=== PATIENT | female | born 1975 | race Caucasian/White ===

== ENCOUNTER 2021-01-25 03:52 | Emergency (ER) | payer OTHER ==
[~2021-01-25] VITALS: Ht 162.6 cm; Wt 90.7 kg
[2021-01-25 04:03] VITALS: BP_SYST 131
[2021-01-25] MEDS ORDERED: GABAPENTIN 300 MG CAPSULE PO ONE (04:30)
[2021-01-25] MEDS ORDERED: predniSONE 20 MG TABLET PO ONE (04:30)
[2021-01-25] MEDS ORDERED: MORPHINE 4 MG INJ. 4 MG/ML VIAL IM ONE (04:30)
[2021-01-25] MEDS ORDERED: PRED20TA PO (05:01)
[2021-01-25] MEDS ORDERED: NEU300 PO (05:01)
[2021-01-25 05:24] VITALS: BP_SYST 131
[2021-01-25] MEDS ORDERED: MORPHINE 4 MG INJ. 4 MG/ML VIAL ONE (05:40)
[2021-01-25 05:48] LABS: BILIRUBIN,URINE NEGATIVE (NEGATIVE); CLARITY/URINE CLEAR (CLEAR); COLOR,URINE YELLOW (YELLOW); GLUCOSE,URINE NEGATIVE (NEGATIVE); KETONES,URINE NEGATIVE (NEGATIVE); LEUKOCYTE ESTERASE ,URINE 1+ (NEGATIVE); NITRITE, URINE NEGATIVE (NEGATIVE); PROTEIN URINE NEGATIVE (NEGATIVE); UROBILINOGEN,URINE 0.2 (0.2-1.0)
[2021-01-25 05:49] LABS: BLOOD, URINE TRACE (NEGATIVE)
[2021-01-25 06:10] LABS: BACTERIA,URINE FEW /HPF (None Seen)
== END 2021-01-25 05:24 | disposition home or self-care (01) ==
LOC: MERGE 03:52 → SED 03:52
DX: R10.9 Unspecified abdominal pain (principal); M79.7 Fibromyalgia; M51.34 Other intervertebral disc degeneration, thoracic region; Z79.899 Other long term (current) drug therapy
CPT/HCPCS: 81000; 81025; 87086; 96372; 99284; J2270; J7512

== ENCOUNTER 2021-01-28 15:11 | Emergency (ER) | payer OTHER ==
[~2021-01-28] VITALS: Ht 162.6 cm; Wt 99.8 kg
[2021-01-28 15:11] VITALS: BP_SYST 124
[~2021-01-28 15:11] MED LIST: NEU300 PO; PRED20TA PO
--- NOTE | 2021-01-28 15:15 | NUR ---
BROUGHT BACK TO BED #7 AND TRIAGED. REPORT GIVEN TO RADHA
--- NOTE | 2021-01-28 15:30 | NUR ---
PT CAME IN FROM HOME C/O ABD PAIN TO LEFT SIDE, GAS, CRAMPING, NAUSEA, DIARRHEA FOR THE LAST WEEK. PT ALSO C.O LEFT SIDED BACK PAIN, HAS BEEN TAKING IBUPROFEN AT HOME WITHOUT RELIEF. PT ALSO STATES SHE HAS BEEN HAVING HOT FLASHES AND SWEATING AND COUGHING. PT IS AMBULATORY, AAOX4, V/S STABLE
--- NOTE | 2021-01-28 15:46 | NUR ---
ER DR. PEREZ AT THE BEDSIDE EXAMINING PT
--- NOTE | 2021-01-28 15:55 | NUR ---
PT ABLE TO AMBULATE TO BATHROOM TO PROVIDE URINE SAMPLE
[2021-01-28] MEDS ORDERED: MORPHINE 4 MG INJ. 4 MG/ML VIAL IVP ONE (16:00)
[2021-01-28] MEDS ORDERED: ONDANSETRON HCL 4 MG/2 ML VIAL IVP ONE (16:00)
--- NOTE | 2021-01-28 16:00 | NUR ---
# 20 gauge angiocath placed to LAC. Use of asceptic technique. Opsite placed over site. Blood return noted. Blood for lab drawn from site. Flushed with 10 cc of normal saline. No evidence of infiltration noted. Patient tolerated well.
[2021-01-28 16:11] LABS: BASOPHILS # (AUTO) 0.1 K/uL (0.0-0.2); BASOPHILS % (AUTO) 0.7 % (0.0-2.0); EOSINOPHILS % (AUTO) 0.3 % (0.0-4.0); HEMATOCRIT 41.6 % (36-48); HEMOGLOBIN 14.2 g/dL (12.0-16.0); LYMPHOCYTES # (AUTO) 3.2 K/uL (1.0-5.5); LYMPHOCYTES % (AUTO) 23.1 % (20.5-51.5); MEAN CORPUSCULAR HEMOGLOBIN 30 pg (27-31); MEAN CORPUSCULAR HGB CONC 34 % (32-36); MEAN CORPUSCULAR VOLUME 89 fL (79.0-98.0); MONOCYTES # (AUTO) 0.9 K/uL (0.0-1.0); MONOCYTES % (AUTO) 6.7 % (1.7-9.3); NEUTROPHILS # (AUTO) 9.7 K/uL (1.8-7.7); NEUTROPHILS % (AUTO) 69.2 % (40.0-70.0); PLATELET COUNT (AUTO) 368 K/uL (130-430); RED BLOOD CELL COUNT(AUTO) 4.71 MIL/uL (4.2-6.2)
[2021-01-28 16:42] LABS: INR 0.9 (0.8-1.2); PROTHROMBIN TIME 9.6 SECS (9.5-12.5)
--- NOTE | 2021-01-28 16:53 | NUR ---
Patient transported to radiology via WC, accompanied by STAFF.
--- NOTE | 2021-01-28 17:00 | NUR ---
PT RESTING IN GURNEY, AWAKE, ALERT, RESPIRATIONS EVEN AND UNLABORED, NO DISTRESS NOTED
[2021-01-28 17:01] LABS: CREATININE 0.86 mg/dL (0.55-1.30); POTASSIUM 3.1 mmol/L (3.5-5.1)
[2021-01-28 17:07] LABS: ALBUMIN 4.2 g/dL (3.4-4.8); TOTAL BILIRUBIN 0.3 mg/dL (0.0-1.0)
[2021-01-28] MEDS ORDERED: POTASSIUM CHLORIDE 20 MEQ TAB.PRT.SR PO ONE (18:00)
[2021-01-28] MEDS ORDERED: POLY17PO4 PO (18:03)
[2021-01-28] MEDS ORDERED: METR500T PO (18:03)
[2021-01-28] MEDS ORDERED: CIPR500T5 PO (18:03)
[2021-01-28 18:20] LABS: BILIRUBIN,URINE NEGATIVE (NEGATIVE); COLOR,URINE YELLOW (YELLOW); GLUCOSE,URINE NEGATIVE (NEGATIVE); KETONES,URINE NEGATIVE (NEGATIVE); LEUKOCYTE ESTERASE ,URINE 1+ (NEGATIVE); NITRITE, URINE NEGATIVE (NEGATIVE); PROTEIN URINE NEGATIVE (NEGATIVE); UROBILINOGEN,URINE 0.2 (0.2-1.0)
[2021-01-28 18:21] VITALS: BP_SYST 124
--- NOTE | 2021-01-28 18:22 | NUR ---
Patient given written and verbal discharge instructions and verbalizes understanding. ER MD discussed with patient the results and treatment provided. Patient in stable condition. ID arm band removed. IV catheter removed intact and dressing applied, no active bleeding. Rx of CIPRO, FLAGYL AND MIRALAX given. Patient educated on pain management and to follow up with PMD. Pain Scale 0/10. Opportunity for questions provided and answered. Medication side effect fact sheet provided.
[2021-01-28 19:01] LABS: BLOOD, URINE TRACE (NEGATIVE)
[2021-01-28 19:02] LABS: CLARITY/URINE SLIGHTLY HAZY (CLEAR)
[2021-01-28 19:18] LABS: BACTERIA,URINE FEW /HPF (None Seen); MUCUS,URINE None Seen /LPF (None Seen); RBC,URINE 0-3 /HPF (0-3)
== END 2021-01-28 18:22 | disposition home or self-care (01) ==
LOC: MERGE 15:11 → SED 15:11
DX: K57.92 Diverticulitis of intestine, part unspecified, without perforation or abscess without bleeding (principal); Z79.899 Other long term (current) drug therapy
CPT/HCPCS: 36415; 74176; 76376; 80053; 81000; 81025; 83690; 85025; 85610; 85730; 87086; 96374; 96375; 99284; J2270; J2405

== ENCOUNTER 2021-02-02 20:00 | Emergency (ER) | payer OTHER ==
[~2021-02-02] VITALS: Ht 162.6 cm; Wt 90.7 kg
[~2021-02-02 20:00] MED LIST changes: +CIPR500T5 PO; +METR500T PO; +POLY17PO4 PO
[2021-02-02 20:06] VITALS: BP_SYST 118
[2021-02-02] MEDS ORDERED: ONDANSETRON HCL 4 MG/2 ML VIAL IVP ONE (20:45)
--- NOTE | 2021-02-02 20:50 | NUR ---
Patient to ER bed 05 to gown for evaluation. Side rails up.
--- NOTE | 2021-02-02 21:00 | NUR ---
# 20 gauge angiocath placed to rac. Use of asceptic technique. Opsite placed over site. Blood return noted. Blood for lab drawn from site. Flushed with 10 cc of normal saline. No evidence of infiltration noted. Patient tolerated well.
--- NOTE | 2021-02-02 21:01 | NUR ---
Urine HCG done, results neg
--- NOTE | 2021-02-02 21:02 | NUR ---
Patient brought in ambulated with from home complaining of pain to left abdomen worsening, poor appetite, sever nausea. Patient was seen on January 28 and diagnosed with diverticulitis. Pain 08/27
--- NOTE | 2021-02-02 21:08 | NUR ---
patient off unit to ct scan.
--- NOTE | 2021-02-02 21:13 | NUR ---
patient returned from ct scan. Patient voiced no complaints, placed back in [facility]
[2021-02-02 21:24] LABS: BASOPHILS # (AUTO) 0.1 K/uL (0.0-0.2); BASOPHILS % (AUTO) 0.5 % (0.0-2.0); EOSINOPHILS % (AUTO) 0.3 % (0.0-4.0); HEMATOCRIT 40.4 % (36-48); HEMOGLOBIN 13.9 g/dL (12.0-16.0); LYMPHOCYTES % (AUTO) 16.1 % (20.5-51.5); MEAN CORPUSCULAR HEMOGLOBIN 31 pg (27-31); MEAN CORPUSCULAR HGB CONC 35 % (32-36); MEAN CORPUSCULAR VOLUME 88 fL (79.0-98.0); MONOCYTES # (AUTO) 0.9 K/uL (0.0-1.0); MONOCYTES % (AUTO) 7.5 % (1.7-9.3); NEUTROPHILS # (AUTO) 9.6 K/uL (1.8-7.7); NEUTROPHILS % (AUTO) 75.6 % (40.0-70.0); PLATELET COUNT (AUTO) 338 K/uL (130-430); RED BLOOD CELL COUNT(AUTO) 4.58 MIL/uL (4.2-6.2); RED CELL DISTRIBUTION WIDTH 13.2 % (9.0-15.0); WHITE BLOOD COUNT (AUTO) 12.6 K/uL (4.8-10.8)
[2021-02-02 21:29] LABS: C-REACTIVE PROTEIN QUANT 2.4 mg/dL (0-0.5)
[2021-02-02 21:38] LABS: CALCIUM 8.8 mg/dL (8.4-11.0); CREATININE 1.47 mg/dL (0.55-1.30); POTASSIUM 3.8 mmol/L (3.5-5.1)
[2021-02-02 21:43] LABS: ALBUMIN 3.8 g/dL (3.4-4.8); TOTAL BILIRUBIN 0.5 mg/dL (0.0-1.0)
[2021-02-02 21:45] LABS: PROTHROMBIN TIME 10.6 SECS (9.5-12.5)
[2021-02-02 21:58] LABS: BILIRUBIN,URINE NEGATIVE (NEGATIVE); COLOR,URINE YELLOW (YELLOW); GLUCOSE,URINE NEGATIVE (NEGATIVE); KETONES,URINE NEGATIVE (NEGATIVE); LEUKOCYTE ESTERASE ,URINE TRACE (NEGATIVE); NITRITE, URINE NEGATIVE (NEGATIVE); PROTEIN URINE NEGATIVE (NEGATIVE); UROBILINOGEN,URINE 0.2 (0.2-1.0)
[2021-02-02] MEDS ORDERED: ONDA-8 TL (22:11)
[2021-02-02] MEDS ORDERED: IBUP-1969 PO (22:11)
[2021-02-02] MEDS ORDERED: AMOX-423 PO (22:11)
[2021-02-02] MEDS ORDERED: AMOXICILLIN/CLAVULANATE POTASSIUM 875 MG TABLET PO ONE (22:15)
[2021-02-02] MEDS ORDERED: ONDANSETRON 4 MG ODT TAB PO ONE (22:15)
[2021-02-02 22:23] LABS: BLOOD, URINE TRACE (NEGATIVE)
[2021-02-02 22:24] LABS: CLARITY/URINE SLIGHTLY HAZY (CLEAR)
--- NOTE | 2021-02-02 22:25 | NUR ---
Patient given written and verbal discharge instructions and verbalizes understanding. ER MD discussed with patient the results and treatment provided. Patient in stable condition. ID arm band removed. IV catheter removed intact and dressing applied, no active bleeding. Rx of augmentin, ibuprofen and zofran given. Patient educated on pain management and to follow up with PMD. Pain Scale 0/10 Opportunity for questions provided and answered. Medication side effect fact sheet provided.
--- NOTE | 2021-02-02 22:45 | NUR ---
ER at bedside examining patient.
[2021-02-02 22:53] LABS: BACTERIA,URINE FEW /HPF (None Seen); RBC,URINE 0-3 /HPF (0-3)
[2021-02-02 22:54] LABS: MUCUS,URINE None Seen /LPF (None Seen)
[2021-02-02 23:13] VITALS: BP_SYST 121
== END 2021-02-02 23:13 | disposition home or self-care (01) ==
LOC: SED 20:00
DX: K57.92 Diverticulitis of intestine, part unspecified, without perforation or abscess without bleeding (principal)
CPT/HCPCS: 36415; 74176; 76376; 80053; 81000; 81025; 82150; 83605; 83690; 84703; 85025; 85610; 85730; 86140; 87086; 96374; 99284; J2405